=== PATIENT | female | born 1980 | race Two or more races ===

== ENCOUNTER 2020-10-03 12:55 | Inpatient (IN) | payer OTHER ==
[~2020-10-03] VITALS: Ht 175.3 cm; Wt 101.7 kg
[2020-10-03 13:37] LABS: Basophils # (auto) 0 10 ^3/uL (0-0.2); Lymphocytes % (auto) 13.3 % (10.0-50.0)
[2020-10-03 13:39] LABS: Basophils % (auto) 0.3 % (0.0-2.0); Eosinophils # (auto) 0.1 10 ^3/uL (0-0.8); Eosinophils % (auto) 0.5 % (0.0-7.0); Hematocrit 32.3 % (36.0-46.0); Hemoglobin 10.2 g/dL (12.2-16.2); Lymphocytes # (auto) 1.6 10 ^3/uL (0.4-5.4); Mean Corpuscular Hemoglobin 22.7 pg (28.0-32.0); Mean Corpuscular Hgb Conc. 31.5 g/dL (32.0-36.0); Mean Corpuscular Volume 72.1 fL (80.0-100.0); Monocytes # (auto) 0.5 10 ^3/uL (0-1.3); Monocytes % (auto) 4.5 % (0.0-12.0); Neutrophils # (auto) 9.6 10 ^3/uL (1.6-8.6); Neutrophils % (auto) 81.4 % (37.0-80.0); Platelet Count (auto) 319 10^3/uL (140-450); Red Blood Cells 4.49 10^6/uL (4.0-5.20); Red Cell Distribution Width 16.2 % (11.8-14.3); White Blood Cell 11.7 10^3/uL (4.4-10.8)
[2020-10-03] MEDS ORDERED: ONDANSETRON HCL 4 MG/2 ML VIAL IV ONE (13:45)
[2020-10-03] MEDS ORDERED: NITROGLYCERIN 0.4 MG SL TAB SL ONE (13:45)
[2020-10-03] MEDS ORDERED: MORPHINE SULFATE 4 MG/ML SYR/VIAL IV ONE ×2 (13:45→17:30)
[2020-10-03 14:22] LABS: Chloride 104 mmol/L (98-107); Potassium 3.7 mmol/L (3.5-5.1); Sodium 134 mmol/L (136-145)
[2020-10-03 14:32] LABS: Alanine Aminotransferase 23 U/L (13-56); Albumin 3.8 g/dL (3.4-5.0); Alkaline Phosphatase 63 U/L (45-117); Anion Gap 7 (5-15); Aspartate Aminotransferase 19 U/L (15-37); BUN/Creatinine Ratio 17.9; Bilirubin, Total 0.4 mg/dL (0.2-1.0); Blood Urea Nitrogen 10 mg/dL (7-18); Calcium 8.1 mg/dL (8.5-10.1); Carbon Dioxide 23 mmol/L (21-32); GFR African American 154 mL/min; GFR Non-African American 127 mL/min; Glucose 88 mg/dL (74-106); Magnesium 1.9 mg/dL (1.6-2.6); Total Protein 7.9 g/dL (6.4-8.2)
[2020-10-03] MEDS ORDERED: SODIUM CHLORIDE 0.9% 1,000 ML IV ONE (16:15)
[2020-10-03] MEDS ORDERED: DONNATAL 5ml ORAL Elix (BELLADONNA ALK-PHENOBARB) PO ONE (16:30)
[2020-10-03] MEDS ORDERED: ALUM & MAG HYDROX-SIMETH LIQ(MAALOX) 30 ML PO ONE (16:30)
[2020-10-03] MEDS ORDERED: LIDOCAINE VISCOUS 2% 15ML UD PO ONE (16:30)
[2020-10-03 16:52] LABS: Urine Bacteria NONE SEEN /hpf (None Seen); Urine Blood 2+ /uL (Negative); Urine Mucus FEW (None Seen); Urine WBC 1 /hpf (0 - 5)
[2020-10-03] MEDS ORDERED: NITROGLYCERIN 0.4 MG SL TAB SL PRN (17:30)
[2020-10-03] MEDS ORDERED: LABETALOL HCL 5 MG/ML 4ML SYRINGE IV ONE (17:30)
[2020-10-03] MEDS ORDERED: MORPHINE SULF INJ 2 MG/ML SYRINGE 1ML IV PRN (17:30)
[2020-10-03] MEDS ORDERED: IOHEXOL 350 MG/ML 100ML IJ ONE (18:18)
[2020-10-03 19:12] LABS: Amylase 53 U/L (25-115); Lipase 84 U/L (73-393)
[2020-10-03] MEDS ORDERED: ENALAPRILAT 1.25 MG/ML-1ML VIAL IV PRN (19:15)
[2020-10-03] MEDS ORDERED: LORazepam 2MG/ML-1ML VIAL IV PRN (19:15)
[2020-10-03] MEDS: SODIUM CHLORIDE 0.9% 1,000 ML IV SCH (19:58)
[2020-10-03] MEDS ORDERED: cefTRIAXone 1GM/50ML D5W 50 ML IV ONE (20:00)
[2020-10-03] MEDS: FAMOTIDINE (10MG/ML) 2ML VL IV SCH (21:05)
[2020-10-03] MEDS: MORPHINE SULF INJ 2 MG/ML SYRINGE 1ML IV PRN (21:31)
[2020-10-03] MEDS: PROMETHAZINE HCL 25 MG/ML 1ML IV PRN (21:32)
[2020-10-03] MEDS: metroNIDAZOLE 500MG/100ML 100 ML IV SCH (22:02)
[2020-10-04] MEDS: hydrALAZINE HCL 25 MG TAB PO SCH ×4 (00:02→21:48)
[2020-10-04] MEDS: MORPHINE SULF INJ 2 MG/ML SYRINGE 1ML IV PRN ×2 (02:24→20:28)
[2020-10-04] MEDS: PROMETHAZINE HCL 25 MG/ML 1ML IV PRN (02:24)
[2020-10-04 06:43] LABS: Basophils # (auto) 0 10 ^3/uL (0-0.2); Eosinophils # (auto) 0 10 ^3/uL (0-0.8); Lymphocytes # (auto) 2.3 10 ^3/uL (0.4-5.4); Mean Corpuscular Volume 72.3 fL (80.0-100.0); Monocytes # (auto) 1.1 10 ^3/uL (0-1.3); Neutrophils # (auto) 8.2 10 ^3/uL (1.6-8.6); Nucleated Red Blood Cells % 0.1 %
[2020-10-04 06:45] LABS: Basophils % (auto) 0.2 % (0.0-2.0); Eosinophils % (auto) 0.3 % (0.0-7.0); Hematocrit 31.8 % (36.0-46.0); Hemoglobin 10.3 g/dL (12.2-16.2); Lymphocytes % (auto) 19.9 % (10.0-50.0); Mean Corpuscular Hemoglobin 23.5 pg (28.0-32.0); Mean Corpuscular Hgb Conc. 32.6 g/dL (32.0-36.0); Monocytes % (auto) 9.7 % (0.0-12.0); Neutrophils % (auto) 69.9 % (37.0-80.0); Platelet Count (auto) 314 10^3/uL (140-450); Red Cell Distribution Width 16.2 % (11.8-14.3); White Blood Cell 11.8 10^3/uL (4.4-10.8)
[2020-10-04] MEDS: metroNIDAZOLE 500MG/100ML 100 ML IV SCH ×3 (06:54→21:48)
[2020-10-04] MEDS: SODIUM CHLORIDE 0.9% 1,000 ML IV SCH ×2 (06:54→14:00)
[2020-10-04 06:57] LABS: Potassium 3.6 mmol/L (3.5-5.1)
[2020-10-04 07:15] LABS: Albumin 3.5 g/dL (3.4-5.0); BUN/Creatinine Ratio 12.9; Bilirubin, Total 0.5 mg/dL (0.2-1.0); Calcium 7.6 mg/dL (8.5-10.1); Total Protein 7.7 g/dL (6.4-8.2)
[2020-10-04] MEDS: FAMOTIDINE (10MG/ML) 2ML VL IV SCH ×2 (08:37→18:42)
[2020-10-04 10:35] LABS: INR 0.97 (0.9-1.15); Partial Thromboplastin Time 28.2 sec (23.0-31.2)
[2020-10-04] MEDS ORDERED: fentaNYL CITRATE 100 MCG/2 ML VL ONE ×2 (10:37→12:34)
[2020-10-04] MEDS ORDERED: HYDROmorphone HCL 2 MG/ML VL ONE (10:37)
[2020-10-04] MEDS ORDERED: MIDAZOLAM HCL 1MG/1ML-2 ML VIAL ONE (10:37)
[2020-10-04] MEDS ORDERED: ONDANSETRON HCL 4 MG/2 ML VIAL ONE (10:38)
[2020-10-04] MEDS ORDERED: PROPOFOL 10 MG/ML 20 ML IV ONE (10:38)
[2020-10-04] MEDS ORDERED: DexAMETHasone SOD PHOS 10MG/1ML VIAL INJ ONE (10:38)
[2020-10-04] MEDS ORDERED: ROCURONIUM 10MG/ML 10ML VIAL IV ONE (10:38)
[2020-10-04] MEDS ORDERED: LIDOCAINE 2% (LOCAL ANESTH.) PF 5ml SDV ONE (10:38)
[2020-10-04] MEDS ORDERED: GLYCOPYRROLATE 0.2 MG/ML 1ML VIAL ONE ×2 (10:38→12:00)
[2020-10-04] MEDS ORDERED: KETOROLAC TROMETH 30 MG/ML 1ML VIAL IV ONE (10:40)
[2020-10-04] MEDS ORDERED: BUPIVACAINE 0.25% INJ 50ML VIAL ONE (10:44)
[2020-10-04] MEDS ORDERED: BUPIVACAINE 0.5% MPF INJ 30ML SDV IJ ONE (11:39)
[2020-10-04] MEDS ORDERED: ceFAZolin 1GM VL ONE (11:40)
[2020-10-04] MEDS ORDERED: NEOSTIGMINE 1 MG/ML INJ (10mg/10ML VIAL) ONE (12:00)
[2020-10-04] MEDS ORDERED: NALOXONE HCL 0.4 MG/ML VIAL ONE (12:19)
[2020-10-04] MEDS ORDERED: D5W/SOD CHL 0.45%/KCL 20MEQ 1,000 ML IV ONE (12:30)
[2020-10-04] MEDS ORDERED: ONDANSETRON HCL 4 MG/2 ML VIAL IV PRN (13:00)
[2020-10-04] MEDS ORDERED: HYDROmorphone HCL 2 MG/ML VL IV PRN (13:00)
[2020-10-04] MEDS ORDERED: ENAL2.5T7 PO (14:28)
[2020-10-04 17:00] VITALS: BP 133/74
[2020-10-04] MEDS: cefTRIAXone 1GM/50ML D5W 50 ML IV SCH (20:41)
[2020-10-04 21:00] VITALS: BP 134/83
[2020-10-04] MEDS: ACETAMINOPHEN 325 MG TAB PO PRN (23:12)
[2020-10-05] MEDS: SODIUM CHLORIDE 0.9% 1,000 ML IV SCH ×3 (01:15→21:15)
[2020-10-05 05:00] VITALS: BP 134/85
[2020-10-05] MEDS: metroNIDAZOLE 500MG/100ML 100 ML IV SCH ×3 (05:36→22:06)
[2020-10-05] MEDS: hydrALAZINE HCL 25 MG TAB PO SCH ×3 (05:36→22:07)
[2020-10-05 05:50] LABS: Basophils # (auto) 0 10 ^3/uL (0-0.2); Basophils % (auto) 0.2 % (0.0-2.0); Eosinophils # (auto) 0 10 ^3/uL (0-0.8); Eosinophils % (auto) 0.1 % (0.0-7.0); Hemoglobin 9.5 g/dL (12.2-16.2); Monocytes # (auto) 0.9 10 ^3/uL (0-1.3); Monocytes % (auto) 9.4 % (0.0-12.0); Neutrophils # (auto) 6.6 10 ^3/uL (1.6-8.6); Neutrophils % (auto) 69.3 % (37.0-80.0); White Blood Cell 9.5 10^3/uL (4.4-10.8)
[2020-10-05 05:52] LABS: Mean Corpuscular Hemoglobin 23.7 pg (28.0-32.0); Mean Corpuscular Hgb Conc. 32.7 g/dL (32.0-36.0); Mean Corpuscular Volume 72.5 fL (80.0-100.0); Platelet Count (auto) 321 10^3/uL (140-450); Red Cell Distribution Width 16.5 % (11.8-14.3)
[2020-10-05] MEDS: FAMOTIDINE (10MG/ML) 2ML VL IV SCH ×2 (06:50→18:40)
[2020-10-05 08:29] VITALS: BP 172/89
[2020-10-05] MEDS: hydrALAZINE HCL 20 MG/ML VL IV PRN (09:33)
[2020-10-05 13:06] VITALS: BP 154/88
[2020-10-05] MEDS: ACETAMINOPHEN 325 MG TAB PO PRN ×2 (13:44→20:04)
[2020-10-05 16:56] VITALS: BP 153/90
[2020-10-05] MEDS ORDERED: ONDANSETRON HCL 4 MG/2 ML VIAL ONE (18:12)
[2020-10-05] MEDS: cefTRIAXone 1GM/50ML D5W 50 ML IV SCH (20:35)
[2020-10-05 22:00] VITALS: BP 149/82
[2020-10-06] MEDS: MORPHINE SULF INJ 2 MG/ML SYRINGE 1ML IV PRN (01:11)
[2020-10-06] MEDS: hydrALAZINE HCL 25 MG TAB PO SCH ×2 (04:29→05:45)
[2020-10-06] MEDS: hydrALAZINE HCL 20 MG/ML VL IV PRN (04:31)
[2020-10-06 05:00] VITALS: BP 166/95
[2020-10-06] MEDS: SODIUM CHLORIDE 0.9% 1,000 ML IV SCH (05:44)
[2020-10-06] MEDS: metroNIDAZOLE 500MG/100ML 100 ML IV SCH (05:44)
[2020-10-06] MEDS: FAMOTIDINE (10MG/ML) 2ML VL IV SCH (06:56)
[2020-10-06 08:42] VITALS: BP 156/94
[2020-10-06 09:38] VITALS: BP 156/94
[2020-10-06] MEDS: ACETAMINOPHEN 325 MG TAB PO PRN (10:58)
[2020-10-06 12:57] VITALS: BP 152/92
== END 2020-10-06 12:45 | disposition home or self-care (01) | DRG 263 ==
LOC: ER 12:55 → TELE 12:56 → TELE-EAST 10-04 11:55
PROVIDERS: ADMIT Internal Medicine; ATTEND Family Medicine
PROC: 3E013GC Introduction of Other Therapeutic Substance into Subcutaneous Tissue, Percutaneous Approach (ICD-10-PCS; 2020-10-04)
PROC: 0FT44ZZ Resection of Gallbladder, Percutaneous Endoscopic Approach (ICD-10-PCS; principal; 2020-10-04 11:12)
DX: K80.00 Calculus of gallbladder with acute cholecystitis without obstruction (principal); R07.9 Chest pain, unspecified; I10 Essential (primary) hypertension; D50.9 Iron deficiency anemia, unspecified; E66.9 Obesity, unspecified; N83.201 Unspecified ovarian cyst, right side; Z20.822 Contact with and (suspected) exposure to COVID-19; Z68.31 Body mass index [BMI] 31.0-31.9, adult
CPT/HCPCS: 36415; 71046; 71260; 74177; 76705; 76856; 80053; 81001; 81025; 82150; 82247; 83690; 83735; 84484; 85025; 85379; 85610; 85730; 86304; 86850; 86900; 86901; 87086; 87426; 93005; G0378; J0690; J0696; J1100; J1885; J2001; J2250; J2405; J2704; J3490